=== PATIENT | female | born 1950 | race Caucasian/White ===

== ENCOUNTER → 2016-11-08 | Outpatient (CLI) | payer MEDICARE, OTHER ==
--- NOTE | 2016-11-09 15:01 | EKG ---
Date Performed: 11/08/2016 Time Performed: 14:52:31 PTAGE: 65 years EKG: Sinus rhythm NONSPECIFIC T-WAVE ABNORMALITY BORDERLINE ECG NO PREVIOUS TRACING DOCTOR: Benjamin Gaines Interpretating Date/Time 11/09/2016 14:59:57
== END ==
LOC: HCAV 14:26
PROVIDERS: ATTEND Orthopaedic Surgery Orthopaedic Surgery of the Spine
DX: Z01.810 Encounter for preprocedural cardiovascular examination (principal)
CPT/HCPCS: 93005

== ENCOUNTER → 2016-11-27 | Day surgery (SDC) | payer MEDICARE, OTHER ==
[~2016-11-27] MED LIST: ACETAMINOPHEN/HYDROcodone 325 MG/5 MG TAB ONE; LACTATED RINGER'S 1000 ML INJ 1,000 ML ONE; MIDAZOLAM HCL 2 MG/2 ML VIAL ONE; ONDANSETRON HCL 4 MG/2 ML VIAL IV PUSH ONE; PROPOFOL 200 MG/20 ML AMP IV ONE; TRIAMCINOLONE ACETONIDE 40 MG/ML VIAL ONE; ceFAZolin INJ 1,000 MG VIAL ONE
--- NOTE | 2016-11-27 13:22 | TN ---
cc: NICKIE URBINA M.D. DATE OF SURGERY: 11/27/2016 PREOPERATIVE DIAGNOSIS Right knee internal derangement. POSTOPERATIVE DIAGNOSIS Right knee complex tear medial meniscus, complex tear lateral meniscus; moderate tricompartmental osteoarthritis with chondromalacia. PROCEDURE Right knee arthroscopic surgery - subtotal medial and lateral meniscectomy. SURGEON Daxa Urbina MD. ASSESSMENT Kassandra Gamino PA-C. SPECIMEN None. ESTIMATED BLOOD LOSS None. COMPLICATIONS None. ANESTHESIA General. DRAINS None. TOURNIQUET TIME 11 minutes at 250 mmHg. CONDITION Stable. PLAN OF ACTIVITY Per orders. DETAILS OF PROCEDURE The patient was brought into the operating room and had satisfactory anesthesia by Dr. Mode Cuellar of the Department of Anesthesia. The right lower extremity was prepped and draped in the usual sterile manner. The extremity was exsanguinated by Curly wrap and the tourniquet inflated to 250 mmHg. Anterolateral and anteromedial portals were made. Introduction of the arthroscopic instruments were performed. The knee was irrigated with copious amounts of Ringer's lactate solution. Inspection of the patellofemoral compartment revealed a mild degree of synovitis. The patient was found to have a mild degree of chondromalacia of the patellofemoral compartment. The lateral compartment showed the patient to have a moderate degree of chondromalacia involving the lateral femoral condyle with an area of exposed bone with a complex tear involving the posterolateral meniscus. The anterior cruciate ligament was found to be intact; no evidence any recent or remote tears. The medial compartment revealed the patient to have a complex [id number] tear involving the posteromedial meniscus with also a moderate degree of chondromalacia of the medial femoral condyle with a small area of exposed bone. A subtotal lateral meniscectomy was performed using meniscal rongeurs and shaver. Also, a subtotal medial meniscectomy was performed with meniscal rongeurs and a shaver. Chondroplasty with shaving of the articular surface was also performed using shaver on the lateral femoral condyle and the medial femoral condyle. The knee was irrigated with copious amounts of sterile saline antibiotic solution. The wound itself was dry. The arthroscopic instruments were removed. The incision was closed with 3-0 nylon suture. 1 cc of Kenalog 40 was injected in the knee. Sterile dressings were applied. The patient tolerated the procedure well and arrived in the recovery room in stable and satisfactory condition. MD ARUNA Martino/BEL /12:59 PM /1:05 PM
== END | disposition home or self-care (01) ==
LOC: ESDC 10:55
PROVIDERS: ATTEND Orthopaedic Surgery Orthopaedic Surgery of the Spine
DX: S83.231A Complex tear of medial meniscus, current injury, right knee, initial encounter (principal); S83.271A Complex tear of lateral meniscus, current injury, right knee, initial encounter; M17.11 Unilateral primary osteoarthritis, right knee; M94.261 Chondromalacia, right knee
CPT/HCPCS: 01400; 29880; J0690; J2250; J2405; J3010; J3301; J7120